=== PATIENT | female | born 1985 | race Caucasian/White ===

== ENCOUNTER 2021-08-15 12:05 | Emergency (ER) | payer OTHER, SELFPAY ==
[2021-08-15 13:03] VITALS: BP 130/68; PULSE 88; RESP 28; TEMP 36.4; O2SAT 100
--- NOTE | 2021-08-15 14:34 | ED.URI ---
HPI - URI/Sore Throat General Chief Complaint: Upper Respiratory Infection Stated Complaint: cough,fever Time Seen by Provider: 08/15/21 14:26 Source: patient and RN notes reviewed Mode of arrival: ambulatory Limitations: no limitations History of Present Illness HPI Narrative: Patient presents today complaining of 3-day history of cough, fever up to 102.7, headache, sore throat, ear pain, body aches, chills, diarrhea. MD elicited complaint: fever and cough Related Data Home Medications Medication Instructions Recorded Confirmed atorvastatin 40 mg PO DAILY 08/15/21 08/15/21 cyclobenzaprine 10 mg PO TID 08/15/21 08/15/21 pantoprazole 40 mg PO DAILY 08/15/21 08/15/21 Allergies Allergy/AdvReac Type Severity Reaction Status Date / Time antibiotic Allergy Unknown Uncoded 08/15/21 13:40 Review of Systems Review of Systems: CONSTITUTIONAL: Denies sweats.+ Fever, body aches, chills EYES: Denies visual changes, redness, or discharge. ENT: Denies rhinorrhea. + Throat, congestion, ear pain CARDIOVASCULAR: Denies chest pain, palpitations, or edema. RESPIRATORY: Denies dyspnea.+ Cough GASTROINTESTINAL: Denies abdominal pain, nausea, vomiting. + Diarrhea GENITOURINARY: Denies dysuria or hematuria. SKIN: Denies rash, itching, or wounds. MUSCULOSKELETAL: Denies back pain, joint pain, or myalgia. NEUROLOGIC: Denies numbness, tingling, or weakness.+ Headache PSYCH: Denies depression or anxiety. PMFSH Comments At time of signature, I have reviewed and agree with nursing past medical, surgical, social and family history unless otherwise noted. Please see nursing chart for further information. There is no relevant family history pertinent to the presenting complaint Exam Narrative: GENERAL: Ill-appearing, well-nourished, and in no acute distress. HEAD: Normocephalic, atraumatic. EYES: EOMI. No redness or drainage. Conjunctivae normal. ENT: Mucous membranes pink and moist. Nares clear. No rhinorrhea. TMs normal bilaterally. Throat normal. Uvula midline. NECK: Normal AROM. Supple. No lymphadenopathy. CHEST: No respiratory distress. Clear to auscultation. HEART: Regular rate and rhythm. No murmur appreciated. Normal peripheral pulses. EXTREMITIES: Normal range of motion. No edema. SKIN: Warm, dry, no rash. Capillary refill normal. Normal skin turgor. NEURO: No focal deficits. Alert and oriented x3. Gait steady. PSYCH: Normal affect. No signs of depression or anxiety. Course Course Level of Care: Express Care Visit Vital Signs Vital signs: Vital Signs Temperature 97.6 F 08/15/21 13:03 Pulse Rate 88 08/15/21 13:03 Respiratory Rate 28 H 08/15/21 13:03 Blood Pressure 130/68 08/15/21 13:03 Pulse Oximetry 100 08/15/21 13:03 Temperature 97.6 F 08/15/21 13:03 Pulse Rate 88 08/15/21 13:03 Respiratory Rate 28 H 08/15/21 13:03 Blood Pressure 130/68 08/15/21 13:03 Pulse Oximetry 100 08/15/21 13:03 Reviewed MDM - URI/Sore Throat Differential Diagnosis Differential diagnosis: Likely upper respiratory infection, bronchitis and other (COVID-19) Lab Data Attestation: I reviewed the patient's lab results. Lab results narrative: Rapid COVID-19 positive Critical Care Time Critical Care Time Critical Care Time: No Discharge Plan Discharge Clinical Impression: COVID-19 Patient Disposition: Home, Self-Care Condition: Stable Instructions: COVID-19 (Coronavirus Disease 2019) (ED) Additional Instructions: You have tested positive for COVID-19. Take some Mucinex to help break up congestion in your chest. Take Tylenol for fever or pain. Use the albuterol inhaler to help with your cough. Follow-up with your doctor in 1 week if symptoms are not improving. Go to the ER immediately if you develop chest pain or difficulties breathing. Your blood pressure was elevated above 120/80 today at Urgent Care. This puts you above the threshold for follow up. Please schedule a followup visit
== END 2021-08-15 14:40 | disposition home or self-care (01) ==
PROVIDERS: Emergency Provider Nurse Practitioner
DX: U07.1 COVID-19 (principal); Z86.73 Personal history of transient ischemic attack (TIA), and cerebral infarction without residual deficits; Z86.718 Personal history of other venous thrombosis and embolism; I10 Essential (primary) hypertension; G62.9 Polyneuropathy, unspecified; Z90.5 Acquired absence of kidney
CPT/HCPCS: 87426; 99213; C9803; G0463